=== PATIENT | female | born 1995 | race Caucasian/White ===

== ENCOUNTER → 2016-12-06 | Day surgery (SDC) | payer BC, OTHER ==
[~2016-12-06] MED LIST: COLACE 100MG C100 MG PO; IBUPROFEN600 MG PO; NORCO 5-325 TA1 EACH PO
== END | disposition home or self-care (01) ==
LOC: OR 06:33
PROVIDERS: Obstetrics & Gynecology
PROC: 0DNW4ZZ Release Peritoneum, Percutaneous Endoscopic Approach (ICD-10-PCS; principal; 2016-12-06 08:00)
DX: K66.0 Peritoneal adhesions (postprocedural) (postinfection) (principal); N94.6 Dysmenorrhea, unspecified; N94.10 Unspecified dyspareunia; Z80.3 Family history of malignant neoplasm of breast; Z80.8 Family history of malignant neoplasm of other organs or systems; Z82.49 Family history of ischemic heart disease and other diseases of the circulatory system; Z83.3 Family history of diabetes mellitus; Z88.2 Allergy status to sulfonamides; Z90.49 Acquired absence of other specified parts of digestive tract; Z98.890 Other specified postprocedural states
CPT/HCPCS: 84703; J1100; J1885; J2250; J2405; J2710; J2765; J2795; J3010; J7120; Q9968

== ENCOUNTER 2016-12-09 20:47 | Emergency (ER) | payer BC, OTHER ==
[2016-12-09 22:18] LABS: RED BLOOD COUNT 4.91 M/UL (4.00-5.10); WHITE BLOOD COUNT 4.7 K/UL (4.5-11.0)
[2016-12-09 22:49] LABS: BUN/CREATININE RATIO 16 (0-10)
== END 2016-12-10 05:05 | disposition home or self-care (01) ==
LOC: ER1 20:47
PROVIDERS: Physician Assistant
DX: J10.1 Influenza due to other identified influenza virus with other respiratory manifestations (principal); E86.0 Dehydration; R10.32 Left lower quadrant pain; R10.13 Epigastric pain; Z90.49 Acquired absence of other specified parts of digestive tract; Z88.2 Allergy status to sulfonamides
CPT/HCPCS: 36415; 71010; 80053; 81001; 83605; 83690; 84703; 85025; 86403; 87040; 87081; 87086; 87880; 96361; 96374; 96375; 99284; J2270; J2405; J7030

== ENCOUNTER → 2020-11-10 | Outpatient (CLI) | payer OTHER ==
[~2020-11-10] MED LIST changes: +CLEOCIN HCL300 MG PO; +LORTAB 5-325 M1 EACH PO; +VIBRAMYCIN 100100 MG PO
== END ==
LOC: EXRD 10:45
DX: R22.9 Localized swelling, mass and lump, unspecified (principal)
CPT/HCPCS: 76881